=== PATIENT | male | born 1985 | race Caucasian/White ===

== ENCOUNTER → 2016-05-16 | Outpatient (CLI) | payer OTHER | LOC: COL.PUL 07:51 | DX: J45.40 Moderate persistent asthma, uncomplicated (principal) ==

== ENCOUNTER → 2016-07-11 | Outpatient (CLI) | payer OTHER | LOC: COL.PUL 06-24 10:00 | DX: R06.02 Shortness of breath (principal); Z87.891 Personal history of nicotine dependence | CPT/HCPCS: J7674 ==